=== PATIENT | female | born 1970 | race Hispanic/Latino ===

== ENCOUNTER 2021-02-17 07:48 | Day surgery (SDC) | payer BC ==
--- NOTE | 2021-02-12 11:03 | RAD REPORT ---
EXAM DESCRIPTION: Rehana Pa And Lat (2 Views)02/12/2021 10:56 am CLINICAL HISTORY: Preop for gallbladder surgery COMPARISON: None FINDINGS: Pltt-[id number] bilateral pulmonary opacities. The heart is normal size IMPRESSION: [id number]-[id number] bilateral pulmonary opacities suspicious for pneumonia
[2021-02-12 11:49] LABS: ALT/SGPT 66 U/L (12-78); AST/SGOT 25 U/L (15-37); Albumin 3.7 g/dL (3.4-5.0); Alkaline Phosphatase 330 U/L (45-117); Amylase 58 U/L (25-115); BUN Blood Urea Nitrogen 11 mg/dL (7-18); Bicarbonate 27 mmol/L (21-32); Bilirubin Direct 0.1 mg/dL (0-0.2); Bilirubin Total 0.4 mg/dL (0.2-1.0); Glucose Level 95 mg/dL (74-106); Lipase 97 U/L (73-393); Potassium 4.6 mmol/L (3.5-5.1); Protein, Total 8.4 g/dL (6.4-8.2); Sodium Level 137 mmol/L (136-145)
[2021-02-12 11:50] LABS: Absolute Lymphocytes (CBC) 1.8 K/uL (0.7-4.9); Basophils % 0.4 % (0-1.3); Hematocrit 36.7 % (36.0-45.0); Lymphocytes % 26.3 % (15.3-44.8); MPV 7.3 fL (7.6-11.3); RBC Red Blood Cell Count 4.18 M/uL (3.86-4.86)
[2021-02-12 12:30] LABS: Blood Morphology Comment NOT SEEN (NOT SEEN); Platelet Estimate INCR; Platelets, Giant FEW
--- NOTE | 2021-02-17 08:27 | RAD REPORT ---
EXAM DESCRIPTION: RAD - Chest Pa And Lat (2 Views) - 02/17/2021 8:21 am CLINICAL HISTORY: Pre Op COMPARISON: Chest Pa And Lat (2 Views) dated 02/12/2021 FINDINGS: Lines: None. Lungs: No evidence of edema or pneumonia. Nearly completely resolved basilar airspace disease. Pleural: No significant pleural effusions or pneumothorax. Cardiac: The heart size is within normal limits. Bones: No acute fractures. Other: IMPRESSION: Nearly completely resolved basilar airspace disease.
[2021-02-17] MEDS ORDERED: Ringers Lactate 1,000 ML IV ONE (09:05)
[2021-02-17] MEDS ORDERED: CEFOXITIN/NS 1gm 1 GM/50 ML BAG ONE (09:06)
[2021-02-17] MEDS ORDERED: FENTANYL CITR 100 MCG/2 ML ONE (11:20)
[2021-02-17] MEDS ORDERED: LIDOCAINE 1% MPF 5 ML VIAL ONE (11:20)
[2021-02-17] MEDS ORDERED: ROCURONIUM 50 MG/5 ML VIAL IV ONE (11:20)
[2021-02-17] MEDS ORDERED: MIDAZOLAM HCL 2 MG/2 ML INJ ONE (11:20)
[2021-02-17] MEDS ORDERED: propofoL 200 MG/20 ML VIAL IV ONE (11:21)
[2021-02-17] MEDS ORDERED: dexAMETHasone 10 MG/ML VIAL ONE (11:49)
[2021-02-17] MEDS ORDERED: KETOROLAC 30 MG/ML INJ ONE (11:49)
--- NOTE | 2021-02-17 11:56 | P.BOP ---
Preoperative diagnosis: enlarging gallbladder polyp/mass Postoperative diagnosis: same Primary procedure: Laparoscopic cholecystectomy Surgical Nurse: KAELYN FOSTER ([employer]) Estimated blood loss: <10cc Specimen: gb Findings: as above Anesthesia: General Complications: None Transferred to: Recovery Room Condition: Good
[2021-02-17] MEDS ORDERED: ONDANSETRON 4 MG/2 ML VIAL ONE (12:04)
[2021-02-17] MEDS: HYDROMORPHONE HCL 1 MG/ML INJ ONE ×2 (12:13→12:18)
[2021-02-17] MEDS ORDERED: NEOSTIGMINE 1 MG/ML -5 ML ONE (12:18)
[2021-02-17] MEDS ORDERED: GLYCOPYRROLATE 0.2 MG/ML SYR ONE (12:18)
--- NOTE | 2021-02-17 12:34 | DS ---
Diagnosis: Enlarging gallbladder polyp/mass. Procedure: Laparoscopic cholecystectomy. Disposition: Home. Activity: As tolerated. No heavy lifting. Plan: Follow up in my office in 1 week. Call for appointment at [phone]. Keep area dry for 48 leonides rs, then may shower. Keep Steri-Strip intact. Medications: See orders for medications. ISRAEL/ANURADHA Voice ID: [id number] Report ID: [id number]
[2021-02-17 12:37] VITALS: O2SAT 99
--- NOTE | 2021-02-17 12:43 | OP ---
Date of Procedure: 02/17/2021 Surgeon: Shun Romero MD Preoperative Diagnosis: Enlarging gallbladder polyps/mass. Postoperative Diagnosis: Enlarging gallbladder polyps/mass. Procedure: Laparoscopic cholecystectomy. Anesthesia: General plus local. Complications: None. Estimated Blood Loss: Less than 10 mL. Findings: The patient has removed gallbladder. The liver does not show at least any anterior extrac apsular masses. I do not see any growth coming to the gallbladder wall. Indications: This is the case of a female 51-year-old patient with having enlarging mass, possible p olyps inside the gallbladder. It is being watched by her medical care physician. enlarge ment at this time, they asked her the gallbladder to be removed. So benefits, alternatives, and risk s of laparoscopic possible open cholecystectomy were fully explained, which include, but not limited to infection, bleeding, damage to adjacent structures, anesthesia complication, PR, and even . She also understands this may not relieve any symptoms. She might need more than one surgical interv ention. She understood, signed a consent. Procedure In Detail: The patient was brought to the operating room, placed in supine position. Anes thesia was done without complication. Abdominal area was prepped and draped in usual sterile fashion . Local anesthesia was applied followed by sharp incision of the skin in the infraumbilical region. Incision was carried down to fascia, which was opened under direct vision. Vicryl #1 placed inside of the fascia. Mercy trocar was carefully introduced. Pneumoperitoneum was obtained. I placed 3 m ore trocars, 5 mm each one of them in the right upper quadrant using same technique which consisted o f local anesthetic and sharp incision of the skin and introduction of the trocars under direct vision . This allowed me to put a grasper in the fundus of the gallbladder, another grasper in the infundib ulum retracting the gallbladder in the inferolateral fashion, exposing the triangle of Calot, and obt aining critical view. The cystic duct and cystic artery were clearly isolated, free circumferentiall y and a connection between those and the gallbladder were clearly identified. I proceeded to ligate those by using at least 3 clips proximal, 1 clip distal, ligation in middle. Same was done with the cystic artery. No bile leak. No bleeding. The gallbladder was removed from liver using Bovie caute rizer and removed from abdominal cavity using EndoCatch through the umbilical incision. The area was inspected once again. No bile leak. No bleeding. At that moment, I proceeded to remove the trocar s under direct vision. Deflated pneumoperitoneum, closed the fascia with #1 Vicryl. Irrigated subcu taneous tissue, closed that with 3-0 chromic and skin in a subcuticular fashion. Sponge counts and i nstrument counts correct. The patient tolerated the procedure well. The patient was sent to recover y in stable condition. ISRAEL/ANURADHA Voice ID: [id number] Report ID: [id number]
[2021-02-17 13:15] VITALS: TEMP 97.3
[2021-02-17] MEDS ORDERED: CODEINE 30MG/APAP 300MG TAB ONE (13:41)
[2021-02-17 14:08] VITALS: BP 112/77
== END 2021-02-17 14:09 | disposition home or self-care (01) ==
LOC: OR 07:48
PROVIDERS: ATTEND Surgery
PROC: 0FT44ZZ Resection of Gallbladder, Percutaneous Endoscopic Approach (ICD-10-PCS; principal; 2021-02-17 09:30)
DX: K82.4 Cholesterolosis of gallbladder (principal)
CPT/HCPCS: 93005; 85025; 80048; 36415; 82150; 80076; 88304; 83690; 71046 ×2; 47562; J2704; J2250; J3010; J1100; J1170; J2710; J7120; J0694; J2405